=== PATIENT | female | born 1985 | race Caucasian/White ===

== ENCOUNTER 2018-07-23 14:51 | Inpatient (IN) | payer MEDICAID ==
[2018-09-20] MEDS ORDERED: EPINEPHrine 1 MG INJ (07:00)
[2018-09-20 14:30] LABS: ADD MAN DIFF? NO
[2018-09-20] MEDS ORDERED: METHYLERGONOVINE 0.2 MG INJ IM ×2 (14:30→21:00)
[2018-09-20] MEDS ORDERED: OXYTOCIN 30 UNITS/LR 500 ML IV ×3 (14:30→21:00)
[2018-09-20] MEDS ORDERED: CEFAZOLIN 2 GM/50 ML (PMX) 50 ML IVPB (14:30)
[2018-09-20] MEDS ORDERED: CARBOPROST 250 MCG INJ IM ×2 (14:30→21:00)
[2018-09-20] MEDS ORDERED: MISOPROSTOL 200 MCG TAB PR ×2 (14:30→21:00)
[2018-09-20 14:34] LABS: WHITE BLOOD COUNT 10.7 10^3/ul (4.8-10.8)
[2018-09-20 14:34] LABS: BASOPHILS % 0.4 % (0.0-2.0); EOSINOPHILS # 0.1 10^3/ul (0.0-0.5); EOSINOPHILS % 1.2 % (0.0-7.0); HEMATOCRIT 40.7 % (37.0-47.0); HEMOGLOBIN 13.1 g/dl (12.0-16.0); LYMPHOCYTES # 2.3 10^3/ul (0.8-2.9); LYMPHOCYTES % 21.5 % (15.0-51.0); MEAN CORPUSCULAR HEMOGLOBIN 27.1 pg (29.0-33.0); MEAN CORPUSCULAR HGB CONC 32.2 g/dl (32.0-37.0); MEAN CORPUSCULAR VOLUME 84.1 fl (82.0-101.0); MEAN PLATELET VOLUME 9.9 fl (7.4-10.4); MONOCYTE # 0.8 10^3/ul (0.3-0.9); MONOCYTES % 7.5 % (0.0-11.0); NEUTROPHIL # 7.4 10^3/ul (1.6-7.5); NEUTROPHILS % 68.7 % (39.0-77.0); PLATELET COUNT 194 10^3/UL (140-415); RED BLOOD COUNT 4.84 10^6/ul (4.20-5.40); RED CELL DISTRIBUTION WIDTH 13.8 % (11.5-14.5)
[2018-09-20] MEDS: LACTATED RINGER'S 1,000 ML IV ×3 (14:39→22:01)
[2018-09-20 14:54] LABS: INR 0.95; PARTIAL THROMBOPLASTIN TIME 27.5 Sec (23.0-35.0); PROTIME 12.8 Sec (11.9-14.9)
[2018-09-20 15:21] LABS: HEPATITIS B SURFACE ANTIGEN NEGATIVE (NEGATIVE)
[2018-09-20] MEDS: ONDANSETRON 4 MG INJ IV ×2 (16:29→21:57)
[2018-09-20] MEDS: METOCLOPRAMIDE 10 MG INJ IV (16:29)
[2018-09-20] MEDS: FAMOTIDINE 20 MG INJ IV (16:29)
[2018-09-20] MEDS ORDERED: morphine SULFATE/PF (10 MG/10 ML) INJ (16:55)
[2018-09-20] MEDS ORDERED: BUPIVACAINE 0.75%/DEXT (SPINAL) 2 ML INJ (16:55)
[2018-09-20] MEDS ORDERED: OXYTOCIN 10 UNIT INJ (16:55)
[2018-09-20] MEDS ORDERED: ONDANSETRON 4 MG INJ IV (17:00)
[2018-09-20] MEDS ORDERED: FENTAnyl 50 MCG/ML VIAL IV ×2 (17:00)
[2018-09-20] MEDS ORDERED: DIPHENHYDRAMINE 50 MG INJ IV ×2 (17:00)
[2018-09-20] MEDS ORDERED: ZOLPIDEM 5 MG TAB PO (17:00)
[2018-09-20] MEDS ORDERED: KETOROLAC 30 MG INJ IV (17:00)
[2018-09-20] MEDS ORDERED: HYDROmorphONE 1 MG/5 ML IV SYRINGE IV ×3 (17:00)
[2018-09-20] MEDS ORDERED: HYDROmorphONE 0.5 MG/0.5 ML SYG IV ×2 (17:00)
[2018-09-20] MEDS ORDERED: NALOXONE (0.4 MG/ML) INJ IV (17:00)
[2018-09-20] MEDS: OXYTOCIN 30 UNITS/LR 500 ML IV (18:13)
[2018-09-20 18:17] LABS: RAPID PLASMA REAGIN NONREACTIVE (NR)
[2018-09-20] MEDS: AZITHROMYCIN 500MG/NS (PMX) 250 ML IVPB (18:35)
[2018-09-20] MEDS: KETOROLAC 30 MG INJ IV (18:57)
[2018-09-20] MEDS ORDERED: OXYCODONE/ACETAMINOPHEN (5/325) TAB PO (21:00)
[2018-09-20] MEDS ORDERED: NA PHOSPHATE/BIPHOS 133 ML ENEMA PR (21:00)
[2018-09-20] MEDS: CEFAZOLIN 2 GM/50 ML (PMX) 50 ML IVPB (21:18)
[2018-09-20] MEDS: SENNA/DOCUSATE NA (8.6MG/50MG) TAB PO (21:18)
[2018-09-20] MEDS: IBUPROFEN 800 MG TAB PO (21:51)
[2018-09-20] MEDS: CLINDAMYCIN 300 MG CAP PO (23:15)
[2018-09-21] MEDS: LACTATED RINGER'S 1,000 ML IV ×3 (01:14→14:36)
[2018-09-21] MEDS: CEFAZOLIN 2 GM/50 ML (PMX) 50 ML IVPB ×2 (04:41→12:25)
[2018-09-21] MEDS: CLINDAMYCIN 300 MG CAP PO ×3 (05:22→18:31)
[2018-09-21] MEDS: IBUPROFEN 800 MG TAB PO ×3 (06:00→22:05)
[2018-09-21 08:37] LABS: ADD MAN DIFF? NO
[2018-09-21 08:40] LABS: BASOPHILS % 0.2 % (0.0-2.0); EOSINOPHILS % 0.3 % (0.0-7.0); HEMATOCRIT 33.8 % (37.0-47.0); HEMOGLOBIN 11.2 g/dl (12.0-16.0); LYMPHOCYTES # 1.5 10^3/ul (0.8-2.9); LYMPHOCYTES % 15.3 % (15.0-51.0); MEAN CORPUSCULAR HEMOGLOBIN 27.8 pg (29.0-33.0); MEAN CORPUSCULAR HGB CONC 33.1 g/dl (32.0-37.0); MEAN CORPUSCULAR VOLUME 83.9 fl (82.0-101.0); MEAN PLATELET VOLUME 10.3 fl (7.4-10.4); MONOCYTE # 0.7 10^3/ul (0.3-0.9); MONOCYTES % 7.2 % (0.0-11.0); NEUTROPHIL # 7.4 10^3/ul (1.6-7.5); NEUTROPHILS % 76.4 % (39.0-77.0); PLATELET COUNT 160 10^3/UL (140-415); RED BLOOD COUNT 4.03 10^6/ul (4.20-5.40); RED CELL DISTRIBUTION WIDTH 13.9 % (11.5-14.5)
[2018-09-21 08:40] LABS: WHITE BLOOD COUNT 9.6 10^3/ul (4.8-10.8)
[2018-09-21] MEDS: SENNA/DOCUSATE NA (8.6MG/50MG) TAB PO ×2 (09:24→21:15)
[2018-09-21] MEDS: KETOROLAC 30 MG INJ IV (16:46)
[2018-09-22] MEDS: CLINDAMYCIN 300 MG CAP PO ×5 (00:08→23:34)
[2018-09-22] MEDS: BISACODYL 10 MG SUPP PR (01:52)
[2018-09-22] MEDS: HYDROCODONE/APAP (5/325) TAB PO (03:59)
[2018-09-22] MEDS: LACTATED RINGER'S 1,000 ML IV ×3 (04:32→20:32)
[2018-09-22] MEDS: IBUPROFEN 800 MG TAB PO ×3 (05:50→21:25)
[2018-09-22] MEDS: SENNA/DOCUSATE NA (8.6MG/50MG) TAB PO ×2 (09:20→21:25)
[2018-09-22] MEDS ORDERED: ACETAMINOPHEN 325 MG TAB PO (14:30)
[2018-09-22] MEDS: LANOLIN 7 GM TUBE TOP (15:05)
[2018-09-23] MEDS: LACTATED RINGER'S 1,000 ML IV (04:32)
[2018-09-23] MEDS: CLINDAMYCIN 300 MG CAP PO (05:54)
[2018-09-23] MEDS: IBUPROFEN 800 MG TAB PO (05:54)
[2018-09-23] MEDS: SENNA/DOCUSATE NA (8.6MG/50MG) TAB PO (09:15)
[2018-09-23] MEDS: DIPHTH/TET/ACEL PERTUSS (ADULT) 0.5 ML VIAL IM* (09:16)
[2018-09-23] MEDS: MEASLES,MUMPS,RUBELLA VACCINE INJ SC* (09:16)
== END 2018-09-23 12:50 | disposition home or self-care (01) | DRG 788 ==
LOC: OBT 14:51 → L-D 09-20 11:46 → OBT 09-20 14:09 → L-D 09-20 13:00 → PP1 09-20 19:53
PROVIDERS: Obstetrics & Gynecology
PROC: 10D00Z1 Extraction of Products of Conception, Low, Open Approach (ICD-10-PCS; principal; 2018-09-20 15:00)
DX: O34.219 Maternal care for unspecified type scar from previous cesarean delivery (principal); Z3A.39 39 weeks gestation of pregnancy; Z37.0 Single live birth
CPT/HCPCS: 76818; 85025; 85610; 85730; 86592; 86850; 86900; 86901; 87340; 90715; 99464